=== PATIENT | male | born 1940 | race Caucasian/White ===

== ENCOUNTER 2024-06-23 08:24 | Observation (INO) | payer MEDICARE ==
[~2024-06-23] VITALS: Ht 177.8 cm; Wt 64.0 kg
[2024-06-23] VITALS (33 sets, daily range): BP systolic 125–252; BP diastolic 40–79
[~2024-06-23 08:24] MED LIST: Ascorbic Acid500 M2 PO; Aspir 8181 MG PO; CATAPRES0.1 MG PO; L-LYSINE500 M1 PO; LOSA50 PO; METO25ER PO; NUBEQA300 MG PO; Vitamin D1000 UNI1 PO
[2024-06-23] MEDS ORDERED: NS 250 ML IV ONE (09:32)
[2024-06-23] MEDS ORDERED: NS 0 ML IV ONE (09:32)
[2024-06-23] MEDS ORDERED: Heparin Sodium 1000 Units/ML 10ML MDV ONE ×2 (09:32→13:38)
[2024-06-23] MEDS ORDERED: NS 2,000 ML IV ONE (09:32)
--- NOTE | 2024-06-23 09:42 | NUR ---
CALL LIGHT IN REACH.
--- NOTE | 2024-06-23 10:30 | NUR ---
PT SITTING UP ON SIDE OF BED; CALL LIGHT IN REACH.
--- NOTE | 2024-06-23 10:43 | NUR ---
PT LAYING IN BED WITH HOB UP; CALL LIGHT IN REACH.
[2024-06-23] MEDS ORDERED: Labetalol HCL 5 MG/ML 20MLVIAL ONE (10:59)
[2024-06-23] MEDS ORDERED: FentaNYL Citrate 50 MCG/ML 2 ML Injection ONE ×2 (11:29→13:21)
[2024-06-23] MEDS ORDERED: NS 500 ML IV ONE (12:41)
[2024-06-23] MEDS ORDERED: NS 100 ML IV ONE (12:48)
[2024-06-23] MEDS ORDERED: CeFAZolin Sodium 2,000 MG VIAL ONE (12:48)
[2024-06-23] MEDS ORDERED: Protamine Sulfate 50 MG Amp ONE (13:45)
--- NOTE | 2024-06-23 14:15 | NUR ---
PATIENT ARRIVED BACK TO RECOVERY ROOM POST PROCEDURE WITH ANESTHESIA. PATIENT DROWSY, MOVING EXTREMITIES, BUT UNABLE TO FOLLOW COMMANDS. VSS ON RA. LE PULSES PRESENT WITH DOPPLER
[2024-06-23] MEDS ORDERED: HydrALAZINE HCl 20 MG / ML 1ML Vial ONE (14:26)
--- NOTE | 2024-06-23 14:30 | NUR ---
LEFT GROIN SITE C/D/I SOFT/NONTENDER, NO EVIDENCE OF BLEEDING. VSS ON RA.
[2024-06-23] MEDS ORDERED: Ondansetron HCl 2 MG / ML 2ML Vial ONE ×2 (14:36→15:39)
[2024-06-23] MEDS ORDERED: Lactated Ringer's 1,000 ML IV ONE (14:50)
--- NOTE | 2024-06-23 15:00 | NUR ---
MD PRESENT AT BEDSIDE. PATIENT COMPLAINING OF ABDOMINAL PAIN. ABDOMEN SOFT/NO GUARDING PRESENT. PATIENT SLEEPING COMFORTABLY AT TIMES. VSS ON RA. LE PULSES PRESENT WITH DOPPLER. LEFT GROIN SITE SOFT/NOTNENDER, NO EVIDENCE OF BLEEDING.
--- NOTE | 2024-06-23 15:28 | NUR ---
PATIENT AWAKE, MAKING NEEDS KNOWN. LEFT GROIN SITE C/D/I SOFT/NONTENDER, NO EVIDENCE OF BLEEDING. VSS ON RA. PATIENT COMPLAINING OF ABDOMINAL PAIN. BOWEL SOUNDS PRESENT, ABDOMEN SOFT. PATIENT STATING LAST BOWEL MOVEMENT WAS YESTERDAY. ORAL SUCTIONED PERFORMED, THICK WHITE MUCUS PRESENT.
[2024-06-23] MEDS ORDERED: Metoclopramide HCl 5MG / ML 2ML Vial IV ONE (15:45)
--- NOTE | 2024-06-23 15:47 | NUR ---
PATIENT VOMITING, THICK WHITE MUCUS. PATIENT HOB ELEVATED 30 DEGREES. LEFT GROIN SITE C/D/I SOFT/NONTENDER, NO EVIDENCE OF BLEEDING. MILD ABDOMINAL PAIN PRESENT.
[2024-06-23] MEDS ORDERED: Clopidogrel Bisulfate 300 MG TABLET ONE (16:16)
[2024-06-23] MEDS ORDERED: Aspirin 81 MG Chew ONE (16:18)
[2024-06-23] MEDS ORDERED: Lidocaine HCl 2% 20 MG/ML 5ML SYR IV ONE (16:54)
[2024-06-23] MEDS ORDERED: ePHEDrine Sulfate 50 MG/ML 1ML Injection IV ONE (16:54)
--- NOTE | 2024-06-23 16:59 | NUR ---
PATIENT STANDING UP AT BEDSIDE WITH ASSISTANCE. ABDOMINAL PAIN STILL PRESENT. ABDOMEN SOFT/TENDER. LEFT GROIN SITE C/D/I SOFT/NONTENDER, NO EVIDENCE OF BLEEDING. VSS ON RA.
[2024-06-23] MEDS ORDERED: Aspir 8181 MG PO (17:05)
[2024-06-23] MEDS ORDERED: CLOP75 PO (17:05)
[2024-06-23] MEDS ORDERED: NS 1,000 ML IV SCH (17:50)
[2024-06-23] MEDS ORDERED: Ondansetron HCl 2 MG / ML 2ML Vial IV PRN (17:50)
[2024-06-23] MEDS ORDERED: HydrALAZINE HCl 25 MG Tab PO PRN (17:50)
[2024-06-23 18:21] LABS: Hemoglobin 9.1 g/dL (13.5-17.5); Mean Corpuscular HGB 30.6 pg (26.0-34.0); Mean Corpuscular HGB Conc 33.7 g/dL (31.5-36.5); Mean Corpuscular Volume 91 fL (80-100); Mean Platelet Volume 9.8 fL (9.1-12.4); Platelet Count 209 K/mm3 (150-400); RDW Coefficient Variation 13.4 % (11.7-14.2); RDW Standard Deviation 44.3 fL (35.1-46.3); Red Blood Cell Count 2.97 M/mm3 (4.30-5.90)
[2024-06-23 18:48] LABS: Magnesium, Blood 1.9 mg/dL (1.6-2.4)
[2024-06-23 18:52] LABS: Bun/Creatinine Ratio 28.4 (12.0-20.0); Calcium, Blood 8.8 mg/dL (8.5-10.1); Creatinine, Blood 1.48 mg/dL (0.60-1.20); Potassium, Blood 5.4 mmol/L (3.5-5.5); Thyroid Stimulating Hormone 0.821 uIU/mL (0.360-4.800)
[2024-06-23] MEDS ORDERED: Heparin Sodium,Porcine 5,000 UNIT/0.5 ML SDV SC SCH (21:00)
[2024-06-23] MEDS ORDERED: CloNIDine 0.1 MG Tab PO ONE (23:00)
[2024-06-24 04:46] LABS: BASOPHILS ABSOLUTE AUTO 0.03 K/mm3 (0.00-0.23); BASOPHILS PERCENT AUTO 0 % (0-2); EOSINOPHILS ABSOLUTE AUTO 0.07 K/mm3 (0.00-0.68); EOSINOPHILS PERCENT AUTO 1 % (0-6); Hematocrit 24.9 % (37.0-53.0); Hemoglobin 8.2 g/dL (13.5-17.5); IMMATURE GRAN ABSOLUTE AUTO 0.02 K/mm3 (0.00-0.10); IMMATURE GRAN PERCENT AUTO 0 % (0-1); LYMPHOCYTES ABSOLUTE AUTO 1.19 K/mm3 (0.84-5.20); LYMPHOCYTES PERCENT AUTO 17 % (21-46); MONOCYTES ABSOLUTE AUTO 0.54 K/mm3 (0.16-1.47); MONOCYTES PERCENT AUTO 8 % (4-13); Mean Corpuscular HGB 29.9 pg (26.0-34.0); Mean Corpuscular HGB Conc 32.9 g/dL (31.5-36.5); Mean Corpuscular Volume 91 fL (80-100); Mean Platelet Volume 9.9 fL (9.1-12.4); NEUTROPHILS ABSOLUTE AUTO 5.09 K/mm3 (1.96-9.15); NEUTROPHILS PERCENT AUTO 73 % (41-73); Platelet Count 196 K/mm3 (150-400); RDW Coefficient Variation 13.8 % (11.7-14.2); RDW Standard Deviation 45.7 fL (35.1-46.3); Red Blood Cell Count 2.74 M/mm3 (4.30-5.90); White Blood Cell Count 6.94 K/mm3 (4.00-11.30)
[2024-06-24 05:10] VITALS: BP 153/55
[2024-06-24 05:11] LABS: Albumin, Blood 2.9 g/dL (3.4-5.0); Albumin/Globulin Ratio 1.1 (0.8-1.8); Bilirubin, Total 0.3 mg/dL (0.1-1.0); Bun/Creatinine Ratio 26.9 (12.0-20.0); Calcium, Blood 7.7 mg/dL (8.5-10.1); Creatinine, Blood 1.45 mg/dL (0.60-1.20); Globulin, Blood 2.7 g/dL (2.2-4.0); Total Protein, Blood 5.6 g/dL (6.4-8.2)
--- NOTE | 2024-06-24 05:42 | NUR ---
SHIFT SUMMARY PATIENT ALERT, ORIENTED x4. ABLE TO MAKE NEEDS KNOWN TO STAFF. BP HYPERTENSIVE DURING THE SHIFT, SEE EMAR. ON RA WITH SPO2 >90%. NO EVENTS NOTED ON TELE, SR 70s. PATIENT USING URINAL TO VOID. LEFT GROIN SITE SOFT, NONTENDER. DRESSING C/D/I. RIGHT PEDAL PULSE VERY FAINT BUT PALPABLE. PATIENT REPORTING SOME THROBING BUT DECLINES PAIN MEDICATION. NO OTHER CHANGES DURING THE NIGHT, WILL REPORT TO DAY SHIFT RN.
[2024-06-24 07:44] VITALS: BP 158/65
[2024-06-24] MEDS ORDERED: Clopidogrel Bisulfate 75 MG Tab PO SCH (09:00)
[2024-06-24] MEDS ORDERED: Atorvastatin 10 MG Tab PO SCH (09:00)
[2024-06-24] MEDS ORDERED: CloNIDine 0.1 MG Tab PO SCH (09:00)
[2024-06-24] MEDS ORDERED: Metoprolol Succinate 25 MG TABCR PO SCH (09:00)
[2024-06-24] MEDS ORDERED: Losartan Potassium 50 MG Tab PO SCH (09:00)
[2024-06-24] MEDS ORDERED: Aspirin 81 MG Chew PO SCH (09:00)
[2024-06-24 11:22] VITALS: BP 135/52
[2024-06-24] MEDS ORDERED: ATOR10 PO (15:25)
[2024-06-24 16:59] VITALS: BP 173/62
--- NOTE | 2024-06-24 17:08 | NUR ---
DISCHARGE / SHIFT SUMMARY NOTE: NO ACUTE CHANGES HAPPENED DURING SHIFT. NO COMPLAINTS OF CP, PRESSURE, TIGHTNESS OR SOB. GROIN SITE REMAINS FREE OF ANY BLEENING, BRUISING OR A HEMATOMA. TEGADERM C/D/I. PT DISCHARGED TO HOME IN NO ACUTE STRESS AT THIS TIME. PT WAS GIVEN WRITTEN AND VERBAL DC INSTRUCTIONS. PT WAS INSTRUCTED TO COME BACK TO THE ED IF SYMPTOMS WORSE. DISCHARGE INFORMATION AND MEDICATIONS WERE GONE OVER WITH PT AND ALL QUESTIONS AND CONCERNS WERE ADDRESSED. PT IS BEING DISCHARGED WITH A ZIO PATCH AND WAS INSTRUCTED TO FOLLOW UP WITH THE [facility] FOR RESULTS. PT DENIES ANY FURTHER QUESTIONS OR CONCERNS. BELONGINGS WERE COLLECTED AND TAKEN HOME WITH PT. PT WAS WHEELED OUT VIA WHEEL CHAIR.
== END 2024-06-24 17:20 | disposition home or self-care (01) ==
LOC: ORSCMMR 08:24 → MHTC 08:24 → ORSCMMR 10:30 → ORD 10:30 → ORSCSDS 10:30 → PCU 17:17 → ORSCMMR 17:18 → PCU 17:19
PROVIDERS: Student in an Organized Health Care Education/Training Program; ADMIT Nurse Practitioner Acute Care
DX: I44.1 Atrioventricular block, second degree (principal); I73.9 Peripheral vascular disease, unspecified; I10 Essential (primary) hypertension; E78.5 Hyperlipidemia, unspecified; F32.A Depression, unspecified; Z88.8 Allergy status to other drugs, medicaments and biological substances; Z79.82 Long term (current) use of aspirin; Z79.899 Other long term (current) drug therapy
CPT/HCPCS: 36415; 76937; 80048; 80053; 83735; 84443; 85025; 85027; 93246; 96360; 96361; 96372; A9270; C1714; C1725; C1753; C1760; C1769; C1874; C1884; C1887; C1894; C2623; G0378; J0360; J0690; J1644; J2003; J2405; J2720; J2765; J3010; J7030; J7040; J7050; J7120; Q9967